=== PATIENT | male | born 1990 | race Caucasian/White ===

== ENCOUNTER 2020-08-19 09:45 | Emergency (ER) | payer OTHER, SELFPAY ==
--- NOTE | ~2020-08-19 | CT_ITS ---
EXAMINATION: CT facial bones wo con DATE: 08/19/2020 10:29 INDICATION: Struck in left side of face by metal object this morning TECHNIQUE: Computed tomography (CT) of the facial bones and maxillofacial region was performed withou t intravenous contrast. Automated exposure control and iterative reconstruction technique were employ ed. Exam dose: 298.92 mGy-cm total exam DLP. COMPARISON: None. FINDINGS: The frontozygomatic sutures, orbital rims and wilkerson, zygomatic arches, nasal bones, maxilla ry bones are intact. There is fracture of the anterior nasal spine. Normal alignment at the temporomandibular joints. No mandibular fracture is evident. IMPRESSION: Fracture of the anterior nasal spine Reviewed, dictated and finalized at [facility]. Reviewed, dictated and finalized at [facility].
--- NOTE | 2020-08-19 10:01 | ED.WOUNDLAC ---
HPI - Wound/Laceration General Chief Complaint: Wound/Laceration Stated Complaint: scrape on L side of face Time Seen by Provider: 08/19/20 10:01 Source: patient Mode of arrival: ambulatory Limitations: no limitations History of Present Illness HPI narrative: 29-year-old man comes in today complaining of an injury to his left cheek had occurred approximately 1 hour prior to admission. Patient states that he was throwing a pull into a dumpster and it struck him in the face. He denies loss consciousness, nosebleed, loose teeth. He had a tetanus shot 1 year ago. Onset (ago): hour(s) (1) Location: face Place: outdoors Patient tetanus UTD: Yes Context: accidental Associated symptoms: pain Related Data Home Medications Medication Instructions Recorded Confirmed pantoprazole 40 mg PO DAILY 08/19/20 08/19/20 Allergies Allergy/AdvReac Type Severity Reaction Status Date / Time NONE Allergy Unknown Uncoded 05/24/03 14:12 Review of Systems Constitutional: Constitutional: Denies chills and Denies fever(s) ENT: Denies epistaxis and Denies nasal congestion Musculoskeletal: Musculoskeletal: Denies arthralgias and Denies joint swelling Integumentary/Breasts: Skin/Breast: Denies pruritus, Denies erythema and Denies rash Neurologic: Denies vertigo, Denies dizziness and Denies syncope Hematologic/Lymphatic: Hematologic/Lymphatic: Denies easy bleeding and Denies easy bruising Allergic/Immunologic: Allergic/Immunologic: Denies lip swelling and Denies tongue swelling PMFSH Past Medical History Medical History (Updated 08/19/20 @ 10:58 by Luis Felipe Hoang MD) GERD (gastroesophageal reflux disease) Surgical History Surgical History (Updated 08/19/20 @ 10:06 by Luis Felipe Hoang MD) Hx of tonsillectomy Social History Social History (Updated 08/19/20 @ 10:06 by Luis Felipe Hoang MD) Smoking status: Never smoker Alcohol use details: rarely Substance use: never Living arrangements: with family Exam Const: General: healthy appearing, no acute distress and alert Orientation/consciousness: patient oriented x3 Limitations: no limitations HENMT: Head: normal to inspection Ears: external ears normal, TM's normal bilaterally and EAC's normal Mouth: Yes moist mucous membranes Throat: posterior oropharynx normal Other: 3 x 4 brasion over and just below the left zygomatic bone. 2 cm laceration over the zygoma. Eyes: Conjunctivae: conjunctivae normal Pupils: Equal, round and reactive pupils present EOM: EOMs intact bilaterally Resp: Effort & Inspection: normal respiratory effort and not labored Auscultation: clear to auscultation bilaterally, no rales, no rhonchi and no wheezes Cardio: Rate: regular rate Rhythm: regular rhythm Heart sounds: no murmurs Skin: General skin exam: normal color, no jaundice and no pallor Rashes: no rashes Neuro: General: patient oriented x3, moves all extremities, no focal motor deficits and CN's II-XI intact bilaterally Speech: normal speech Gait exam (Neuro): Normal gait present Extrem: General: normal to inspection and no clubbing, cyanosis or edema Psych: Appearance: grossly normal and well kempt Mental Status: mental status grossly normal Affect: normal affect Attitude: cooperative Thought content: Yes Normal thought content present Procedures Laceration Laceration 1: Date: 08/19/20 Time: 10:30 Site: face Side (If applicable): left Size (cm): 2 Description: linear and irregular Depth: simple, single layer Local Anesthetic: lidocaine 1% and with epi Amount of anesthesia used (mL): 3.5 ====== Skin Level ====== Skin layer closed with: nylon Size (cm): 5-0 Number of sutures: 4 Technique: simple, interrupted ====== Subcutaneous Layer ====== ====== Muscle Layer ====== ====== Tendon Layer ====== Discharge Plan Discharge Clinical Impression:
[2020-08-19 10:04] VITALS: BP 134/77; PULSE 62; RESP 18; TEMP 36.7; O2SAT 100
[2020-08-19] MEDS: LIDO 1%/EPINEPHRINE 1:100,000 20 ML VIAL 5 ML INFILTRATE (10:21)
[2020-08-19 11:11] VITALS: BP 128/78; PULSE 64; O2SAT 98
== END 2020-08-19 11:12 | disposition home or self-care (01) ==
PROVIDERS: Emergency Provider Emergency Medicine
DX: S01.81XA Laceration without foreign body of other part of head, initial encounter (principal); W45.8XXA Other foreign body or object entering through skin, initial encounter
CPT/HCPCS: 12011; 70486; 99282; 99284